=== PATIENT | female | born 1985 | race Hispanic/Latino ===

== ENCOUNTER 2017-12-27 18:06 | Emergency (ER) | payer BC ==
[~2017-12-27] VITALS: Ht 160 cm; Wt 102.5 kg
[2017-12-27] MEDS ORDERED: ASPIRIN 81 MG CHEW TAB PO ONE (20:15)
--- NOTE | 2017-12-27 21:24 | Diagnostic Imaging Report ---
EXAMINATION: CHEST SINGLE (PORTABLE) INDICATION: Heart feels like miah. COMPARISON: None FINDINGS: TUBES and LINES: None. LUNGS: Lungs are well inflated. Lungs are clear. There is no evidence of pneumonia or pulmonary edema. PLEURA: No pleural effusion or pneumothorax. HEART AND MEDIASTINUM: The cardiomediastinal silhouette is unremarkable. BONES AND SOFT TISSUES: No acute osseous lesion. UPPER ABDOMEN: No free air under the diaphragm. IMPRESSION: No acute thoracic abnormality. Signed by: Dr. Miguel Tapia M.D. on 12/27/2017 9:21 PM
[2017-12-27 22:00] LABS: BASOPHILS # (AUTO) 0.1 (0.0-0.1); BASOPHILS % 0.5 % (0.0-1.0); EOSINOPHILS % 0.1 % (0.0-6.0); HEMATOCRIT 42.8 % (34.2-44.1); HEMOGLOBIN 14.6 g/dL (12.0-16.0); LYMPHOCYTES # (AUTO) 1.2 (1.0-3.2); LYMPHOCYTES % 12.5 % (18.0-39.1); MEAN CORPUSCULAR HEMOGLOBIN 29.4 pg (28-32); MEAN CORPUSCULAR HGB CONC 34.1 g/dL (31-35); MEAN CORPUSCULAR VOLUME 86.3 fL (81-99); MONOCYTES # (AUTO) 0.2 (0.2-0.8); NEUTROPHILS # (AUTO) 8.4 (2.1-6.9); NEUTROPHILS % 84.7 % (38.7-80.0); PLATELET COUNT 216 x10e3/uL (140-360); RED BLOOD COUNT 4.96 x10e6/uL (3.6-5.1); RED CELL DISTRIBUTION WIDTH 12.2 % (11.7-14.4)
[2017-12-27 22:08] LABS: INR 0.94; PROTHROMBIN TIME 11.8 seconds (11.9-14.5)
[2017-12-27 22:09] LABS: PARTIAL THROMBOPLASTIN TIME 24.1 seconds (23.8-35.5)
[2017-12-27 22:10] LABS: CLARITY,URINE CLEAR (CLEAR); COLOR,URINE YELLOW (YELLOW); LEUKOCYTE ESTERASE ,URINE NEGATIVE (NEGATIVE); NITRITE,URINE NEGATIVE (NEGATIVE)
[2017-12-27 22:11] LABS: BILIRUBIN,URINE NEGATIVE (NEGATIVE); KETONES,URINE NEGATIVE (NEGATIVE); PROTEIN,URINE DIPSTICK NEGATIVE (NEGATIVE); URINE UROBILINOGEN 0.2 mg/dL (0.2 - 1)
[2017-12-27 22:12] LABS: AMPHETAMINES SCREEN,URINE NEGATIVE (NEGATIVE); BENZODIAZEPINES SCREEN,URINE NEGATIVE (NEGATIVE); PHENCYCLIDINE SCREEN,URINE NEGATIVE (NEGATIVE)
[2017-12-27 22:18] LABS: ALANINE AMINOTRANSFERASE 20 IU/L (0-55); ALBUMIN 4.1 g/dL (3.5-5.0); ALKALINE PHOSPHATASE 54 IU/L (40-150); ANION GAP 17.2 mmol/L (8-16); BLOOD UREA NITROGEN 12 mg/dL (7-26); BUN/CREATININE RATIO 14 (6-25); CARBON DIOXIDE 21 mmol/L (22-29); CHLORIDE 103 mmol/L (98-107); CREATINE KINASE 94 IU/L (29-168); CREATININE, SERUM 0.86 mg/dL (0.57-1.11); EST GLOMERULAR FILTRATION RATE > 60 ML/MIN (60-); GLUCOSE 97 mg/dL (74-118); POTASSIUM 4.2 mmol/L (3.5-5.1); SODIUM 137 mmol/L (136-145)
[2017-12-27 22:24] LABS: EPITHELIAL CELLS,URINE FEW /LPF
[2017-12-28 00:14] VITALS: BP 111/89
== END 2017-12-28 00:25 | disposition home or self-care (01) ==
LOC: ER 18:06
DX: R00.2 Palpitations (principal); I49.1 Atrial premature depolarization
CPT/HCPCS: 36415; 71045; 80053; 80307; 81001; 82550; 82553; 84484; 84702; 85025; 85610; 85730; 87086; 93005; 99284

== ENCOUNTER 2019-07-02 10:04 | Emergency (ER) | payer BC, OTHER ==
[~2019-07-02] VITALS: Ht 162.6 cm; Wt 89.8 kg
--- OUTSIDE RECORDS SUMMARY | 2019-07-02 10:07 | XMS REPORT ---
[facility] Address Unknown Phone Unavailable Care Team Providers Care Horse Riding Coach Or Instructor Name Role Phone Oswaldo JEFFERS Unavailable Unavailable Problems This patient has no known problems. Allergies, Adverse Reactions, Alerts This patient has no known allergies or adverse reactions. Medications This patient has no known medications. Results Test Description Test Time Test Comments Text Results Atomic Results Result Comments CHEST SINGLE (PORTABLE) [place] [address] Patient Name: BLADE SIERRA MR #: [id number] : 1985 Age/Sex: 32/F Req #: [id number] Adm Physician: Ordered by: ANA MARIA CABEZAS ASPNET DEVELOPER Report #: [id number] Location: ER Room/Bed: Procedure: [id number] DX/CHEST SINGLE (PORTABLE) Exam Date: 12/27/17 Exam Time: 2029 REPORT STATUS: Signed EXAMINATION: CHEST SINGLE (PORTABLE) INDICATION: Heart feels like miah. COMPARISON: None FINDINGS: TUBES and LINES: None. LUNGS: Lungs are well inflated. Lungs are clear. There is no evidence of pneumonia or pulmonary edema. PLEURA: No pleural effusion or pneumothorax. HEART AND MEDIASTINUM: The cardiomediastinal silhouette is unremarkable. BONES AND SOFT TISSUES: No acute osseous lesion. UPPER ABDOMEN: No free air under the diaphragm. IMPRESSION: No acute thoracic abnormality. Signed by: Dr. Miguel Cintron M.D. on 12/27/2017 9:21 PM Dictated By: SOBEIDA CINTRON MD, MD 20 Transcribed By: VINICIUS on 12/27/172120 COPY TO: ANA MARIA CABEZAS NP
[2019-07-02] MEDS ORDERED: ENSKYCE 28 TAB1 EACH (10:53)
[2019-07-02] MEDS ORDERED: SODIUM CHLORIDE 0.9% 1000ML 1,000 ML IV STA (12:45)
[2019-07-02] MEDS ORDERED: SODIUM CHLORIDE 0.9% 50ML 50 ML ONE (12:48)
[2019-07-02] MEDS ORDERED: IOPAMIDOL 370 MG/ML 200 ML INFUS..BTL INJ ONE (12:49)
[2019-07-02] MEDS ORDERED: SODIUM CHLORIDE 0.9% 1000ML 1,000 ML ONE (12:49)
--- NOTE | 2019-07-02 12:50 | NUR ---
Pt is tearful and c/o headache, pt asking if she will need to be admitted and put on lovenox after getting her CT scan, explained to the pt that getting the CT scan does not mean that she has a blood clot and the blood clot is just a rule out diagnosis by the doctor and it does not mean that she has one. Pt states that she is just worried about having to go off the fertility meds because they have been trying to have a baby for a long time and this is a big step back and I explained to her that she needs to have a discussion with the doctor that put her on them especially if they are making her feel so bad since she started taking them. I asked why she has not talked to that doctor about the way they had made her feel yet and she states that she is afraid she will not be able to continue with the IVF treatment.
[2019-07-02] MEDS ORDERED: ACETAMINOPHEN 325 MG TAB ONE (12:54)
[2019-07-02] MEDS ORDERED: ACETAMINOPHEN 325 MG TAB PO ONE (13:00)
--- NOTE | 2019-07-02 14:53 | Diagnostic Imaging Report ---
EXAMINATION: CT of the chest with contrast, PE protocol. TECHNIQUE: Spiral CT images of the chest were performed from the lung apices through the level of the adrenal glands after the IV administration of 100 cc of Isovue-370. Thin section reconstructions were obtained with special concentration on the pulmonary arteries. COMPARISON: <none> CLINICAL HISTORY:Elevated d-dimer, elevated blood pressure DISCUSSION: Vasculature: The main pulmonary artery, right and left pulmonary arteries, and their visualized lobar and signal branches are patent without filling defect. The pulmonary outflow tract is of normal caliber. No ectasia or aneurysmal dilatation of the ascending thoracic aorta. Great vessel origins are of normal caliber and configuration. No pericardial effusion. No right ventricular dilatation or septal bowing. Lungs: No airspace consolidation, bronchiectasis, or fibrotic change. Airways: <The major airways are clear.> Pleura: <There is no evidence of pleural effusion or pneumothorax.> Heart and mediastinum: No axillary, hilar, or mediastinal lymphadenopathy. Normal heart size. Abdomen: Visualized portions of the liver, spleen, pancreas, adrenals, and kidneys are unremarkable. Status post cholecystectomy. . Bones and soft tissues: No osseous destructive lesions.No focal soft tissue abnormalities IMPRESSION: No pulmonary embolus to the level of the segmental branch pulmonary arteries. Clear lungs. Signed by: Dr. Skip Jhaveri M.D. on 07/02/2019 2:50 PM
[2019-07-02 15:21] VITALS: BP 123/73
== END 2019-07-02 15:30 | disposition home or self-care (01) ==
LOC: FSED 10:04
DX: R07.89 Other chest pain (principal); F41.1 Generalized anxiety disorder; R03.0 Elevated blood-pressure reading, without diagnosis of hypertension; E11.9 Type 2 diabetes mellitus without complications; J45.909 Unspecified asthma, uncomplicated
CPT/HCPCS: 71260; 80053; 81003; 82553; 83880; 84484; 85025; 85379; 93005; 99284; J7030; Q9967

== ENCOUNTER 2019-07-06 13:01 | Observation (INO) | payer BC ==
[~2019-07-06] VITALS: Ht 160 cm; Wt 88.2 kg
[~2019-07-06 13:01] MED LIST: ENSKYCE 28 TAB1 EACH
[2019-07-06] MEDS ORDERED: HYDRALAZINE HCL 20 MG/ML VIAL IV ONE (14:30)
--- NOTE | 2019-07-06 14:54 | Diagnostic Imaging Report ---
EXAMINATION: CHEST 2 VIEWS INDICATION: Dizziness COMPARISON: None FINDINGS: LINES/TUBES:None LUNGS:The lungs are well-inflated. No focal consolidation or pulmonary edema. PLEURA:No pleural effusion or pneumothorax. MEDIASTINUM:The cardiomediastinal silhouette appears normal in size and shape. BONES/SOFT TISSUES:No acute osseous injury. ABDOMEN:No free air under the diaphragm. IMPRESSION: No focal pneumonia or pulmonary edema. Signed by: Devyn Carr MD on 07/06/2019 2:50 PM
[2019-07-06 15:05] LABS: HEMATOCRIT 40.7 % (34.2-44.1); HEMOGLOBIN 14.5 g/dL (12.0-16.0); MEAN CORPUSCULAR VOLUME 82.9 fL (81-99); RED BLOOD COUNT 4.91 x10e6/uL (3.6-5.1)
[2019-07-06 15:06] LABS: LYMPHOCYTES % 1.5 % (18.0-39.1); MEAN CORPUSCULAR HEMOGLOBIN 29.5 pg (28-32); MEAN CORPUSCULAR HGB CONC 35.6 g/dL (31-35); MONOCYTES % 0.6 % (4.4-11.3); NEUTROPHILS % 6.9 % (38.7-80.0); PLATELET COUNT 283 x10e3/uL (140-360); RED CELL DISTRIBUTION WIDTH 11.9 % (11.7-14.4)
[2019-07-06 15:07] LABS: ALANINE AMINOTRANSFERASE 116 IU/L (0-55); ANION GAP 16.2 mmol/L (8-16); BLOOD UREA NITROGEN 7 mg/dL (7-26); BUN/CREATININE RATIO 9 (6-25); CALCIUM 9.4 mg/dL (8.4-10.2); CARBON DIOXIDE 21 mmol/L (22-29); CHLORIDE 90 mmol/L (98-107); CREATININE, SERUM 0.79 mg/dL (0.57-1.11); EST GLOMERULAR FILTRATION RATE > 60 ML/MIN (60-); GLUCOSE 101 mg/dL (74-118); POTASSIUM 3.2 mmol/L (3.5-5.1); SODIUM 124 mmol/L (136-145)
[2019-07-06 15:08] LABS: ALBUMIN/GLOBULIN RATIO 1.1 (0.8-2.0); ALKALINE PHOSPHATASE 46 IU/L (40-150); CREATINE KINASE 86 IU/L (29-168)
--- NOTE | 2019-07-06 16:22 | Diagnostic Imaging Report ---
Exam: Head CT without contrast History: Facial tingling Comparison studies: None Technique: Axial images were obtained from the skull base to the vertex. Coronal and sagittal images reconstructed from the axial data. Dose modulation, iterative reconstruction, and/or weight based adjustment of the mA/kV was utilized to reduce the radiation dose to as low as reasonably achievable. Radiation dose: Total DLP: 921 mGy*cm. Estimated effective dose: DLP x 0.015 Intravenous contrast: None Findings: Scalp: No abnormalities. Bones: No fractures, blastic or lytic lesions. Brain sulci: Appropriate for age. Ventricles: Normal in size and configuration. No hydrocephalus. Extra-axial spaces: No masses, no fluid collection. Parenchyma: No abnormal densities. No masses, hemorrhage, acute or chronic vascular insults. Sellar/suprasellar region: Mostly CSF filled sella, a nonspecific finding which may be of no clinical significance if in the absence of symptoms to suggest idiopathic intracranial hypertension or abnormalities referrable to the hypothalamic pituitary axis. Craniocervical junction: Patent foramen magnum. No Chiari one malformation. Included paranasal sinuses: Clear. Middle ear and mastoids: Clear. IMPRESSION: 1. No acute intracranial abnormalities. 2. Incidental partially CSF filled sella, a nonspecific finding as described. Signed by: Dr. Skip Cochran M.D. on 07/06/2019 4:19 PM
[2019-07-06 16:28] LABS: AMPHETAMINES SCREEN,URINE NEGATIVE (NEGATIVE); BENZODIAZEPINES SCREEN,URINE NEGATIVE (NEGATIVE); BILIRUBIN,URINE NEGATIVE (NEGATIVE); CLARITY,URINE SL CLOUDY (CLEAR); COLOR,URINE STRAW (YELLOW); KETONES,URINE 2+ (NEGATIVE); LEUKOCYTE ESTERASE ,URINE TRACE (NEGATIVE); NITRITE,URINE NEGATIVE (NEGATIVE); PHENCYCLIDINE SCREEN,URINE NEGATIVE (NEGATIVE); PROTEIN,URINE DIPSTICK TRACE (NEGATIVE); URINE UROBILINOGEN 0.2 mg/dL (0.2 - 1)
[2019-07-06 16:41] LABS: BACTERIA,URINE FEW /HPF; EPITHELIAL CELLS,URINE FEW /LPF; RBC,URINE 21-50 /HPF (0-5); WBC,URINE (MAN) 0-5 /HPF (0-5)
[2019-07-06] MEDS ORDERED: HYDRALAZINE HCL 20 MG/ML VIAL IV STA (17:15)
[2019-07-06] MEDS ORDERED: SODIUM CHLORIDE 0.9% 1000ML 1,000 ML IV STA (19:40)
[2019-07-06] MEDS ORDERED: DEXTROSE 50% SYRINGE 50 ML IV PRN (20:00)
[2019-07-06] MEDS ORDERED: LEXAPRO10 MG PO (20:51)
[2019-07-06] MEDS ORDERED: PANTOPRAZOLE SO40 MG PO (20:51)
[2019-07-06] MEDS ORDERED: METOPROLOL TART25 MG PO (20:51)
[2019-07-06] MEDS ORDERED: NITROFURANTOIN100 MG PO (20:51)
[2019-07-06] MEDS ORDERED: ZYRTEC10 MG PO (20:51)
[2019-07-06] MEDS ORDERED: ALBUTEROL2.5 MG/3 M INH (20:55)
[2019-07-06] MEDS ORDERED: EPINEPHRIN0.3 MG/0.3 IM (20:55)
[2019-07-06] MEDS ORDERED: PROAIR HFA INH8.5 GM INH (20:55)
[2019-07-06] MEDS ORDERED: XYZAL5 MG PO (20:55)
[2019-07-06] MEDS ORDERED: ALBUTEROL SULFATE HFA 8GM INHALATION AEROSOL INH PRN (21:15)
[2019-07-06] MEDS ORDERED: ALBUTEROL SULF 0.083% NEB SOLN 3 ML NEB INH PRN (21:15)
[2019-07-06] MEDS: NITROFURANTOIN MACROCRYSTALS 100 MG CAP PO SCH (21:38)
[2019-07-06] MEDS: SODIUM CHLORIDE 0.9% 1000ML 1,000 ML IV SCH (21:43)
[2019-07-06] MEDS ORDERED: ESCITALOPRAM OXALATE 10 MG TAB PO ONE (21:45)
[2019-07-06 23:10] VITALS: BP 162/94
--- NOTE | 2019-07-06 23:30 | NUR ---
Received patient from ER via stretcher. Patient alert and oriented, no s/s of distress or c/o pain at this time. Ambulates via crutches s/p left ankle fracture. All safety measures in place. Family at bedside. Will continue to monitor.
[2019-07-07] VITALS (9 sets, daily range): BP systolic 141–166; BP diastolic 85–94
[2019-07-07 05:34] LABS: BASOPHILS % 0.3 % (0.0-1.0); EOSINOPHILS # (AUTO) 0.1 (0.0-0.4); EOSINOPHILS % 0.7 % (0.0-6.0); HEMATOCRIT 37.1 % (34.2-44.1); HEMOGLOBIN 13.3 g/dL (12.0-16.0); LYMPHOCYTES # (AUTO) 1.8 (1.0-3.2); LYMPHOCYTES % 25.6 % (18.0-39.1); MEAN CORPUSCULAR HEMOGLOBIN 29.7 pg (28-32); MEAN CORPUSCULAR HGB CONC 35.8 g/dL (31-35); MEAN CORPUSCULAR VOLUME 82.8 fL (81-99); MONOCYTES # (AUTO) 0.7 (0.2-0.8); MONOCYTES % 9.5 % (4.4-11.3); NEUTROPHILS # (AUTO) 4.5 (2.1-6.9); NEUTROPHILS % 63.5 % (38.7-80.0); PLATELET COUNT 221 x10e3/uL (140-360); RED BLOOD COUNT 4.48 x10e6/uL (3.6-5.1)
[2019-07-07] MEDS: SODIUM CHLORIDE 0.9% 1000ML 1,000 ML IV SCH ×2 (05:45→16:01)
[2019-07-07 05:53] LABS: ANION GAP 14.8 mmol/L (8-16); BLOOD UREA NITROGEN < 5 mg/dL (7-26); CARBON DIOXIDE 21 mmol/L (22-29); CHLORIDE 103 mmol/L (98-107); CREATININE, SERUM 0.74 mg/dL (0.57-1.11); EST GLOMERULAR FILTRATION RATE > 60 ML/MIN (60-); GLUCOSE 90 mg/dL (74-118); POTASSIUM 3.8 mmol/L (3.5-5.1)
[2019-07-07 06:00] LABS: BUN/CREATININE RATIO 7 (6-25); SODIUM 135 mmol/L (136-145)
--- NOTE | 2019-07-07 08:22 | NUR ---
Report given to charge nurse. Patient resting in bed, no s/s of distress or c/o pain at this time. All safety measures in place. Family at bedside.
[2019-07-07] MEDS ORDERED: METOPROLOL TARTRATE 25 MG TAB PO SCH (09:00)
[2019-07-07] MEDS ORDERED: ESCITALOPRAM OXALATE 10 MG TAB PO SCH ×2 (09:00→21:00)
[2019-07-07] MEDS ORDERED: LORATADINE 10 MG TAB PO SCH (09:00)
[2019-07-07] MEDS ORDERED: NON-FORMULARY MEDICATION (Cetirizine Hcl (Zyrtec) 10 MG) PO SCH (09:00)
[2019-07-07 09:16] LABS: FREE T4 (FREE THYROXINE) 1.3 ng/dL (0.8-1.8); THYROID STIMULATING HORMONE 1.555 uIU/mL (0.350-4.940)
[2019-07-07] MEDS: NITROFURANTOIN MACROCRYSTALS 100 MG CAP PO SCH ×2 (10:00→20:08)
[2019-07-07] MEDS: PANTOPRAZOLE SOD 40 MG TABEC PO SCH (10:00)
[2019-07-07] MEDS: METOPROLOL TARTRATE 25 MG TAB PO SCH ×2 (10:00→17:03)
--- NOTE | 2019-07-07 10:00 | NUR ---
The pt. called to report blurred vision and has a history of anxiety. During conversation with the pt. reports that she no longer has vision issues. She was given morning meds and reassurance given to the pt.
[2019-07-07] MEDS ORDERED: ACETAMINOPHEN 325 MG TAB PO PRN (13:15)
--- NOTE | 2019-07-07 14:00 | NUR ---
Dr. Dodson visited and made aware of the pt's numerous complaints. No orders received. The pt. continues to find numerous ailments to comp about with none being legitimate.
--- NOTE | 2019-07-07 15:19 | History and Physical ---
CHIEF COMPLAINT: Weakness, anxiety, and increased blood pressure. HISTORY OF PRESENT ILLNESS: This is a 33-year-old female, who was recently become my patient last week in office, have little high blood pressure, started on metoprolol; for anxiety, started on Lexapro; and mild UTI, started on Macrobid. Also, has GERD symptoms, started on Protonix. The patient having lot of anxiety symptoms. In last 2 days, blood pressure was high, feeling burning sensation in chest. The patient was sent to the ER last night. In ER, they found to have a sodium level of 124, potassium was 3.2, and high liver function. The patient was admitted for dehydration, anxiety, depression, hypertension, atypical chest pain, and mild shortness of breath. No diarrhea. No constipation. No hemorrhage or melena. No leg pain. No leg swelling. The patient has recently surgery on left leg. Outpatient CT chest and venous Doppler were negative for PE and DVT. ALLERGIES: ALLERGY TO PORK, GRAIN, CARROT, DOXYCYCLINE, LATEX, SOYA, AND STRAWBERRY. PAST MEDICAL HISTORY: 1. Anxiety. 2. Depression. 3. GERD. 4. Recent hypertension. PAST SURGICAL HISTORY: Cholecystectomy and repair of left foot for fracture. HABITS: Denies smoking. Denies alcohol use. FAMILY HISTORY: Positive for hypertension. SOCIAL HISTORY: The patient is . Lives with the . MEDICATIONS: List attached. REVIEW OF SYSTEMS: CONSTITUTIONAL: Denies fatigue or weakness. HEENT: No diplopia. No blurring of vision. CARDIOPULMONARY: Atypical chest pain. Mild shortness of breath. ALIMENTARY SYSTEM: No nausea. No vomiting. No diarrhea. No constipation. GENITOURINARY SYSTEM: No dysuria. No hematuria. MUSCULOSKELETAL: No joint pain. CENTRAL NERVOUS SYSTEM: No focal weakness. PHYSICAL EXAMINATION: GENERAL: This is a 33-year-old female, who is alert and oriented x3, in no gross distress. VITAL SIGNS: Temperature 97.9, pulse 89, respirations 16, and blood pressure 154/91. HEENT: Head atraumatic and normocephalic. Pupils bilaterally equal to light. Extraocular muscles intact. NECK: Supple. No JVD. No carotid bruit. LUNGS: Clear to auscultation and percussion bilaterally. No added sounds. HEART: S1 and S2. Regular rate and rhythm. No S3. No S4. No murmur. ABDOMEN: Soft and nontender. No guarding or rigidity. EXTREMITIES: No edema. Peripheral pulse +1. FIELD OPERATIONS COORDINATOR: Grossly nonfocal. LABORATORY DATA: Chest x-ray and CT of head are normal. Sodium 124 and potassium 3.2. AST and ALT elevated. BUN and creatinine are normal. CBC normal. Urine; leukocyte esterase, rbc's 21-50. ASSESSMENT: 1. Hyponatremia. 2. Dehydration. 3. Hypertension. 4. Anxiety. 5. Depression. 6. Gastroesophageal reflux disease. PLAN: Admit the patient to telemetry. Cardiology consult, Dr. Montiel for hypertension. Psychiatric consult, Dr. Chanel for anxiety and depression. Continue home medicine, Lexapro, Protonix. Change metoprolol 12.5 b.i.d. Continue UTI medicine, Macrobid 100 b.i.d. IV fluids normal saline 100 mL/h. Lab CMP in the morning. T4, TSH today. Case discussed with the patient and her , all condition and prognosis. MD EDWIN Duarte/MEHDI /[id number]
[2019-07-07] MEDS ORDERED: ALBUTEROL SULF 0.083% NEB SOLN 3 ML NEB INH PRN (15:30)
[2019-07-07] MEDS: LORAZEPAM 0.5 MG TAB PO PRN (17:35)
--- NOTE | 2019-07-07 19:10 | NUR ---
Received bedside report from day nurse. Patient resting in bed, no s/s of distress or c/o pain at this time. All safety measures in place. Family at bedside. Will continue to monitor.
--- NOTE | 2019-07-07 19:11 | NUR ---
Report to the oncoming nurse.
--- NOTE | 2019-07-07 20:16 | Consultation ---
DATE OF CONSULTATION: 07/07/2019 Psychiatric Consultation REASON FOR CONSULTATION: Evaluate the patient's mood. HISTORY OF PRESENT ILLNESS: The patient is a 33-year-old female, admitted to hospital for hyponatremia. Psychiatric consultation is called to evaluate the patient's mood. As per medical record, the patient is admitted for hyponatremia. Upon evaluation today, the patient is found to be lying in the bed with the in the room. She agrees for spouse to be present during the assessment. The patient states that she has been feeling increased in stress and anxiety, and some depression due to her health issue as well as the miscarriage that happened in 2015, though she was 2 months around at that time when the miscarriage happened. The patient claims that she and are trying now. She denies currently at this time. The patient states she is anxious intermittently, but denies any suicidal or homicidal ideation. She denies feeling hopeless or helpless. She denies passive wish. She reports intermittent problem with sleep, having nightmares. She reports intermittent appetite problem. She is not open to increase in medication at this time, but agrees for p.r.n. Ativan as needed for her anxiety. PAST PSYCHIATRIC HISTORY: The patient denies past psychiatric history. She denies past suicide attempts. She denies alcohol or drug use. FAMILY HISTORY: Reports sister with anxiety and depression. SOCIAL HISTORY: The patient lives with her . MENTAL STATUS EXAM: The patient is a young female. She is alert, awake, and oriented to situation. Her mood is anxious and depressed. She denies any suicidal or homicidal ideation. Affect is congruent with mood. Insight and judgment are fair. Memory appears to be grossly intact. No paranoid or delusion elicited at this time. CURRENT MEDICATION: 1. Lexapro 10 mg p.o. daily. 2. Metoprolol. 3. Trazodone. 4. Macrobid. 5. Sodium chloride. 6. Tylenol. 7. Albuterol. 8. Dextrose. CURRENT LABS: WBC 7.14, RBC 4.48, hemoglobin 13.3, hematocrit 37.1. Sodium 135, potassium 3.5, chloride 103, CO2 21, BUN less than 5, creatinine 0.74. ASSESSMENT: 1. Major depressive disorder, single episode, moderate. 2. Generalized anxiety disorder. PLAN: 1. Discontinue Lexapro due to sodium level. 2. Ativan 0.25 mg p.o. q.6 hours as needed for anxiety. 3. Add Wellbutrin 75 mg p.o. daily. 4. Monitor for mood. 5. Supportive therapy. 6. Recommend follow up with outpatient Psychiatry. Dictated by Zaida Proctor PA-C MD MARIELOS RitterV/MODL /[id number]
[2019-07-08] VITALS (9 sets, daily range): BP systolic 150–155; BP diastolic 84–96
--- NOTE | 2019-07-08 00:47 | Consultation ---
DATE OF CONSULTATION: Cardiology Consultation HISTORY OF PRESENT ILLNESS: This is a 33-year-old woman with multiple allergies, hypertension and anxiety, who presented to Emergency Department with a burning sensation in her chest. The patient was found to have abnormal electrolyte levels and was admitted for continuation of care. We were consulted for hypertension. She states that the metoprolol gives her an abnormal sensation in her eyes with multiple other nonspecific symptoms. Upon arrival here, she is noted to be hypertensive with a normal heart rate. PAST MEDICAL HISTORY: Anxiety, hypertension, obesity, multiple allergies. PAST SURGICAL HISTORY: Cholecystectomy. SOCIAL HISTORY: No illicit drug, alcohol, or tobacco use. FAMILY HISTORY: Noncontributory. MEDICATIONS: See medication reconciliation form. ALLERGIES: MULTIPLE, SEE CHART. PHYSICAL EXAMINATION: VITAL SIGNS: Temperature is 98.8, heart rate 70, respirations are 20, blood pressure is 151/94, oxygen saturation 99% on room air. GENERAL: Well appearing, well built, no apparent distress. Appears anxious. CARDIOVASCULAR: Regular rate and rhythm. LUNGS: Clear to auscultation. ABDOMEN: Soft, nontender, nondistended. EXTREMITIES: No clubbing, cyanosis or edema. VASCULAR: 2+ pulses. SKIN: Warm, dry and intact. NEUROLOGIC: No focal deficits noted. Cranial nerves are grossly intact. PSYCHIATRIC: Appears anxious. CARDIOVASCULAR MEDICATIONS: Reviewed include metoprolol 12.5 b.i.d. LABORATORY DATA: Reviewed. Troponins negative. Liver function tests are elevated. A 12-lead electrocardiogram showed normal sinus rhythm. IMPRESSION: 1. Hypertension. 2. Anxiety. 3. Elevated liver function tests. 4. Hyponatremia. RECOMMENDATIONS: The patient's blood pressure remains elevated. We will change metoprolol to lisinopril for better blood pressure control. Continue antianxiety medications per primary team. The patient likely has fatty liver disease and will defer management to primary team. If the patient has not had an echocardiogram, recommend checking this. We will continue to follow along with you. Geremias Falk DO BM/MODL /[id number]
[2019-07-08] MEDS: SODIUM CHLORIDE 0.9% 1000ML 1,000 ML IV SCH ×2 (03:56→16:50)
[2019-07-08] MEDS: LORAZEPAM 0.5 MG TAB PO PRN ×2 (05:20→13:28)
[2019-07-08 06:42] LABS: ALANINE AMINOTRANSFERASE 88 IU/L (0-55); ALBUMIN 3.5 g/dL (3.5-5.0); ALBUMIN/GLOBULIN RATIO 1.1 (0.8-2.0); ALKALINE PHOSPHATASE 40 IU/L (40-150); ANION GAP 14.1 mmol/L (8-16); BLOOD UREA NITROGEN < 5 mg/dL (7-26); CALCIUM 9.1 mg/dL (8.4-10.2); CARBON DIOXIDE 21 mmol/L (22-29); CHLORIDE 105 mmol/L (98-107); CREATININE, SERUM 0.71 mg/dL (0.57-1.11); EST GLOMERULAR FILTRATION RATE > 60 ML/MIN (60-); GLUCOSE 90 mg/dL (74-118); POTASSIUM 3.1 mmol/L (3.5-5.1); SODIUM 137 mmol/L (136-145)
[2019-07-08 06:52] LABS: BUN/CREATININE RATIO 7 (6-25)
--- NOTE | 2019-07-08 06:52 | NUR ---
Gave bedside report to day nurse. Patient resting in bed, no s/s of distress or c/o pain at this time. All safety measures in place. Family at bedside.
[2019-07-08] MEDS: LISINOPRIL 10 MG TAB PO SCH (08:36)
[2019-07-08] MEDS: BUPROPION HCL 75 MG TAB PO SCH (08:36)
[2019-07-08] MEDS: PANTOPRAZOLE SOD 40 MG TABEC PO SCH (08:36)
[2019-07-08] MEDS: NITROFURANTOIN MACROCRYSTALS 100 MG CAP PO SCH ×2 (08:36→21:15)
[2019-07-08] MEDS ORDERED: POTASSIUM CHLORIDE 20MEQ/100ML 200 ML IV ONE (09:30)
[2019-07-08] MEDS ORDERED: POTASSIUM CHLORIDE 20 MEQ TAB CR PO ONE (10:00)
--- NOTE | 2019-07-08 12:31 | NUR ---
PT IS A 2 DAY OBSERVATION. SPOKE Kristin PLUNKETT, RN / BEDSIDE RN. STATES PT IS VERY ANXIOUS. PT HAS BEEN CLEARED BY CARDI AND PSYCH. WELLBUTRIN ORDERED. K - 3.1, KCL 40MEQ TO BE GIVEN. F/U K TO BE DRAWN AND REPORTED TO THE MD. DC PENDING. Addendum: 07/08/19 at 1234 by Janki Blackwell CM SENT TO .
[2019-07-08] MEDS ORDERED: POTASSIUM CHLORIDE 10MEQ EA PO ONE (15:30)
--- NOTE | 2019-07-08 15:31 | Progress Note ---
DATE: Cardiology Progress Note SUBJECTIVE: The patient feels anxious. Reports nonspecific symptoms. OBJECTIVE: VITAL SIGNS: Temperature is 98.2, heart rate ranges from 70 to 95, respiratory rate is 18, blood pressure is 152/91, oxygen saturation 100% on room air. GENERAL: Anxious appearing. CARDIOVASCULAR: Regular rate and rhythm. LUNGS: Clear to auscultation. ABDOMEN: Soft, nontender, nondistended. EXTREMITIES: No clubbing, cyanosis, or edema. LABORATORY DATA: Reviewed. Potassium 3.1. CARDIOVASCULAR MEDICATIONS: Reviewed. IMPRESSION: 1. Anxiety. 2. Depression. 3. Hypertension. 4. Elevated liver function tests. 5. Obesity. RECOMMENDATIONS: The patient's blood pressure continues to be elevated. She received her 1st dose of lisinopril. Reasonable to continue this. I have titrated 20 mg as tolerated. Continue antianxiety medications per primary and psychiatric team. Fatty liver disease treatment per primary team. Diet and exercise recommended. We can check an echocardiogram as an outpatient. She is stable for discharge from a cardiovascular standpoint. Geremias Falk DO BM/MODL /[id number]
[2019-07-09] VITALS: BP 124/77
[2019-07-09] MEDS: SODIUM CHLORIDE 0.9% 1000ML 1,000 ML IV SCH (01:16)
[2019-07-09 04:00] VITALS: BP 141/88
[2019-07-09 06:09] LABS: ALANINE AMINOTRANSFERASE 71 IU/L (0-55); ALBUMIN 3.7 g/dL (3.5-5.0); ALBUMIN/GLOBULIN RATIO 1.1 (0.8-2.0); ALKALINE PHOSPHATASE 45 IU/L (40-150); ANION GAP 13.6 mmol/L (8-16); BLOOD UREA NITROGEN 5 mg/dL (7-26); BUN/CREATININE RATIO 6 (6-25); CALCIUM 9.6 mg/dL (8.4-10.2); CARBON DIOXIDE 23 mmol/L (22-29); CHLORIDE 103 mmol/L (98-107); CREATININE, SERUM 0.77 mg/dL (0.57-1.11); EST GLOMERULAR FILTRATION RATE > 60 ML/MIN (60-); GLUCOSE 89 mg/dL (74-118); POTASSIUM 3.6 mmol/L (3.5-5.1); SODIUM 136 mmol/L (136-145)
--- NOTE | 2019-07-09 06:47 | NUR ---
Gave bedside report to oncoming nurse. Patient resting in bed, no s/s of distress or c/o pain at this time. All safety measures in place. Family at bedside.
[2019-07-09 08:17] VITALS: BP 128/83
[2019-07-09 08:27] VITALS: BP 128/83
[2019-07-09] MEDS: NITROFURANTOIN MACROCRYSTALS 100 MG CAP PO SCH (09:49)
[2019-07-09] MEDS: BUPROPION HCL 75 MG TAB PO SCH (09:49)
[2019-07-09] MEDS: PANTOPRAZOLE SOD 40 MG TABEC PO SCH (09:49)
[2019-07-09] MEDS: LISINOPRIL 10 MG TAB PO SCH (09:49)
[2019-07-09] MEDS: LORAZEPAM 0.5 MG TAB PO PRN (12:14)
[2019-07-09 12:51] VITALS: BP 134/92
[2019-07-09 16:06] VITALS: BP 138/81
== END 2019-07-09 18:16 | disposition home or self-care (01) ==
LOC: ER 13:01 → ERHOLD 21:11 → MED/SURG 23:09
PROVIDERS: ADMIT Internal Medicine; ATTEND Internal Medicine
DX: E87.1 Hypo-osmolality and hyponatremia (principal); E86.0 Dehydration; I10 Essential (primary) hypertension; F41.9 Anxiety disorder, unspecified; R20.2 Paresthesia of skin; E11.9 Type 2 diabetes mellitus without complications; J45.909 Unspecified asthma, uncomplicated; Z91.040 Latex allergy status; Z88.8 Allergy status to other drugs, medicaments and biological substances; Z91.018 Allergy to other foods; Z90.49 Acquired absence of other specified parts of digestive tract; K21.9 Gastro-esophageal reflux disease without esophagitis; R79.89 Other specified abnormal findings of blood chemistry; E66.9 Obesity, unspecified; Z68.34 Body mass index [BMI] 34.0-34.9, adult; N39.0 Urinary tract infection, site not specified; F32.1 Major depressive disorder, single episode, moderate
CPT/HCPCS: 36415 ×4; 70450; 71046; 80048; 80053 ×3; 80307; 80320; 81001; 82550; 82553; 82948 ×2; 83935; 84300; 84439; 84443; 84484; 84702; 85025 ×2; 93005; 99284; G0378 ×4; J3480; J7030 ×4; S0164 ×3